=== PATIENT | female | born 1950 | race Caucasian/White ===

== ENCOUNTER 2020-02-01 16:03 | Emergency (ER) | payer MEDICARE, BC ==
[2020-02-01 17:09] LABS: BLOOD UREA NITROGEN,BUN 16 mg/dL (7.0-18.0); CARBON DIOXIDE,CO2 28.6 mmol/L (21.0-32.0); CHLORIDE,CL 96 mmol/L (98-107); GLUCOSE RANDOM 97 mg/dL (74-106); POTASSIUM,K 3.2 mmol/L (3.5-5.1); SODIUM,NA 135 mmol/L (136-145)
--- NOTE | 2020-02-01 17:36 | EDM.PDOC ---
ED HPI GENERAL MEDICAL PROBLEM - General Chief Complaint: Cardiovascular Problem Stated Complaint: HEART PALPATATIONS Time Seen by Provider: 02/01/20 16:18 Source of Information: Reports: Patient History Limitations: Reports: No Limitations - History of Present Illness INITIAL COMMENTS - FREE TEXT/NARRATIVE: 69F presents for palpaitations. Notes over last couple of weeks episodes lasting a few minutes of palpitations/heart racing associated with dizziness like room spinning sensation and nausea. Has vomited once from these episodes. Had roughly 4-5 yesterday and 2 episodes today. Denies CP or SOB. - Related Data Allergies Allergy/AdvReac Type Severity Reaction Status Date / Time amoxicillin Allergy Vomiting Verified 02/01/20 16:15 cephalexin Allergy Vomiting Verified 02/01/20 16:15 clavulanic acid Allergy Vomiting Verified 02/01/20 16:15 [From Augmentin] codeine Allergy Vomiting Verified 02/01/20 16:15 hydroxyzine [From Atarax] Allergy Numbness Verified 02/01/20 16:13 Home Meds: Home Meds Amitriptyline [Elavil] 50 mg PO BEDTIME 04/20/16 [History] Escitalopram Oxalate 1 tab PO QAM 04/20/16 [History] hydroCHLOROthiazide [Hydrochlorothiazide] 0.5 tab PO DAILY 04/20/16 [History] Past Medical History HEENT History: Reports: Cataract Other HEENT History: wears glasses Cardiovascular History: Reports: Hypertension Respiratory History: Reports: None Gastrointestinal History: Reports: Irritable Bowel Syndrome Other Gastrointestinal History: has gluten free diet Genitourinary History: Reports: None 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: Musculoskeletal History: Reports: Arthritis, Back Pain, Chronic, Fracture Other Musculoskeletal History: hx of fx toe Neurological History: Reports: Other (See Below) Other Neuro History: hx of motion sickness Psychiatric History: Reports: Depression Endocrine/Metabolic History: Reports: None Hematologic History: Reports: None Immunologic History: Reports: None Oncologic (Cancer) History: Reports: Basal Cell Carcinoma Other Oncologic History: currently has open area on ankle from recent basal cell cancer excision Dermatologic History: Reports: None - Infectious Disease History Infectious Disease History: Reports: Chicken Pox - Past Surgical History Head Surgeries/Procedures: Reports: None HEENT Surgical History: Reports: Adenoidectomy, Cataract Surgery, Tonsillectomy Cardiovascular Surgical History: Reports: None Respiratory Surgical History: Reports: None GI Surgical History: Reports: Colonoscopy, Other (See Below) Female Surgical History: Reports: Section Endocrine Surgical History: Reports: None Musculoskeletal Surgical History: Reports: Carpal Tunnel, Hip Replacement Social & Family History - Family History Family Medical History: Noncontributory - Tobacco Use Smoking Status *Q: Former Smoker Used Tobacco, but Quit: Yes Month/Year Tobacco Last Used: 1999 - Caffeine Use Caffeine Use: Reports: None - Recreational Drug Use Recreational Drug Use: No ED ROS GENERAL - Review of Systems Review Of Systems: Comprehensive ROS is negative, except as noted in HPI. ED EXAM, GENERAL - Physical Exam Exam: See Below Exam Limited By: Altered Mental Status General Appearance: Alert, WD/WN, No Apparent Distress Head: Atraumatic, Normocephalic Neck: Normal Inspection Respiratory/Chest: No Respiratory Distress, Lungs Clear, Normal Breath Sounds, No Accessory Muscle Use Cardiovascular: Normal Peripheral Pulses, Regular Rate, Rhythm, No Edema GI/Abdominal: Soft, Non-Tender Extremities: Normal Inspection Neurological: Alert Psychiatric: Normal Affect, Normal Mood Skin Exam: Warm, Dry, Intact EKG INTERPRETATION EKG Date: 02/01/20 Time: 17:36 Rhythm: NSR Rate (Beats/Min): 65 [place]: Normal P-Wave: Present QRS: Normal ST-T: Normal QT: Normal Comparison: NA - No Prior EKG Course - Vital Signs Last Recorded V/S: Last Vital Signs Temp 97.2 F 02/01/20 16:16 Pulse 77 02/01/20 16:16 Resp 18 02/01/20 16:16 BP 156/72 H 02/01/20 16:16 Pulse Ox 96 02/01/20 16:16 Orthostatic Blood Pressure [ 133/61 Standing] Orthostatic Blood Pressure [ 143/59 Sitting] Orthostatic Blood Pressure [ 136/59 Supine] - Orders/Labs/Meds Orders: Active Orders 24 hr Category Date Time Status Cardiac Monitoring [RC] . DIRECTED Care 02/01/20 16:45 Active EKG Documentation Completion [RC] STAT Care 02/01/20 16:45 Active Orthostatic Vital Signs [RC] ASDIRECTED Care 02/01/20 16:45 Active Pulse Oximetry [RC] ASDIRECTED Care 02/01/20 16:45 Active Chest 1V Frontal [CR] Stat Exams 02/01/20 16:45 Taken B-TYPE NATRIURETIC PEPTIDE,BNP [CHEM] Stat Lab 02/01/20 16:27 Received Labs: Laboratory Tests 02/01/20 02/01/20 Range/Units 16:27 16:27 WBC 8.43 (4.0-11.0) K/uL RBC 3.83 L (4.30-5.90) M/uL Hgb 12.6 (12.0-16.0) g/dL Hct 36.2 (36.0-46.0) % MCV 94.5 (80.0-98.0) fL MCH 32.9 H (27.0-32.0) pg MCHC 34.8 (31.0-37.0) g/dL RDW Std Deviation 48.6 (28.0-62.0) fl RDW Coeff of Demond 14 (11.0-15.0) % Plt Count 313 (150-400) K/uL MPV 8.90 (7.40-12.00) fL Neut % (Auto) 56.9 (48.0-80.0) % Lymph % (Auto) 30.7 (16.0-40.0) % [place] % (Auto) 10.0 (0.0-15.0) % Eos % (Auto) 2.0 (0.0-7.0) % Baso % (Auto) 0.4 (0.0-1.5) % Neut # (Auto) 4.8 (1.4-5.7) K/uL Lymph # (Auto) 2.6 H (0.6-2.4) K/uL [place] # (Auto) 0.8 (0.0-0.8) K/uL Eos # (Auto) 0.2 (0.0-0.7) K/uL Baso # (Auto) 0.0 (0.0-0.1) K/uL Nucleated RBC % 0.0 /100WBC Nucleated RBCs # 0 K/uL Sodium 135 L (136-145) mmol/L Potassium 3.2 L (3.5-5.1) mmol/L Chloride 96 L (98-107) mmol/L Carbon Dioxide 28.6 (21.0-32.0) mmol/L BUN 16 (7.0-18.0) mg/dL Creatinine 0.8 (0.6-1.0) mg/dL Est Cr Clr Drug Dosing 51.75 mL/min Estimated GFR (MDRD) > 60.0 ml/min Glucose 97 (74-106) mg/dL Calcium 9.2 (8.5-10.1) mg/dL Total Bilirubin 1.0 (0.2-1.0) mg/dL AST 26 (15-37) IU/L ALT 25 (14-63) IU/L Alkaline Phosphatase 77 (46-116) U/L Troponin I < 0.050 (0.000-0.056) ng/mL Total Protein 7.5 (6.4-8.2) g/dL Albumin 4.6 (3.4-5.0) g/dL Globulin 2.9 (2.6-4.0) g/dL Albumin/Globulin Ratio 1.6 (0.9-1.6) TSH 3rd Generation 1.90 (0.36-3.74) uIU/mL - Re-Assessments/Exams Free Text/Narrative Re-Assessment/Exam: 02/01/20 17:33 Labs unermarkable, patient remains asymptomatic throughout stay. She has f/u with her doctor tomorrow morning. WIll d/c with strict return precautions. Patient understands and agrees [facility] plan. Departure - Departure Time of Disposition: 17:33 Disposition: Home, Self-Care 01 Condition: Good Clinical Impression: Palpitations Instructions: Palpitations, [id number] Referrals: Sherman Hsu MD [Primary Care Provider] - Additional Instructions: The following information is given to patients seen in the emergency department who are being discharged to home. This information is to outline your options for follow-up care. We provide all patients seen in our emergency department with a follow-up referral. The need for follow-up, as well as the timing and circumstances, are variable depending upon the specifics of your emergency department visit. If you don't have a primary care physician on staff, we will provide you with a referral. We always advise you to contact your personal physician following an emergency department visit to inform them of the circumstance of the visit and for follow-up with them and/or the need for any referrals to a consulting specialist. The emergency department will also refer you to a specialist when appropriate. This referral assures that you have the opportunity for follow-up care with a specialist. All of these measure are taken in an effort to provide you with optimal care, which includes your follow-up. Under all circumstances we always encourage you to contact your private physician who remains a resource for coordinating your care. When calling for follow-up care, please make the office aware that this follow-up is from your recent emergency room visit. If for any reason you are refused follow-up, please contact the [facility] Emergency Department at and asked to speak to the emergency department charge nurse. Sepsis Event Note (ED) - Evaluation Sepsis Screening Result: No Definite Risk - Focused Exam Vital Signs: Vital Signs Temp Pulse Resp BP Pulse Ox 02/01/20 16:16 97.2 F 77 18 156/72 H 96 - My Orders Last 24 Hours: My Active Orders 02/01/20 16:27 B-TYPE NATRIURETIC PEPTIDE,BNP [CHEM] Stat 02/01/20 16:45 Cardiac Monitoring [RC] . DIRECTED EKG Documentation Completion [RC] STAT Orthostatic Vital Signs [RC] ASDIRECTED Pulse Oximetry [RC] ASDIRECTED Chest 1V Frontal [CR] Stat - Assessment/Plan Last 24 Hours: My Active Orders 02/01/20 16:27 B-TYPE NATRIURETIC PEPTIDE,BNP [CHEM] Stat 02/01/20 16:45 Cardiac Monitoring [RC] . DIRECTED EKG Documentation Completion [RC] STAT Orthostatic Vital Signs [RC] ASDIRECTED Pulse Oximetry [RC] ASDIRECTED Chest 1V Frontal [CR] Stat
[2020-02-01 17:41] VITALS: BP 125/49; PULSE 65
--- NOTE | 2020-02-01 17:47 | CR ---
Chest: Portable view of the chest was obtained. Comparison: No prior chest imaging. Heart size is within normal limits for AP technique. Tortuous thoracic aorta is seen. Linear densities are noted within the right midlung and within the left lower lung most likely due to areas of scarring and possible atelectasis. Lungs otherwise are clear. Mild scoliosis is noted within the spine. Impression: 1. Findings as noted above. 2. Nothing acute is suspected. Diagnostic code #2 This report was dictated in MDT
== END 2020-02-01 17:55 | disposition home or self-care (01) ==
LOC: MW.ED 16:03
DX: R00.2 Palpitations (principal); F32.9 Major depressive disorder, single episode, unspecified; I10 Essential (primary) hypertension; Z87.891 Personal history of nicotine dependence; Z88.1 Allergy status to other antibiotic agents; Z88.5 Allergy status to narcotic agent; Z88.8 Allergy status to other drugs, medicaments and biological substances; Z79.899 Other long term (current) drug therapy
CPT/HCPCS: 71045; 71045-26; 80053; 83880; 84443; 84484; 85025; 93005; 93010; 99283; 99285-25

== ENCOUNTER 2020-03-04 11:40 | Emergency (ER) | payer MEDICARE, BC ==
--- NOTE | 2020-03-04 11:54 | EDM.PDOC ---
ED HPI GENERAL MEDICAL PROBLEM - General Chief Complaint: Neuro Symptoms/Deficits Stated Complaint: HAVING ISSUES MOVING LT HAND Time Seen by Provider: 03/04/20 11:50 Source of Information: Reports: Patient History Limitations: Reports: No Limitations - History of Present Illness INITIAL COMMENTS - FREE TEXT/NARRATIVE: History of present illness: [Patient is 69-year-old female who presents with dexterity problems related to her left hand. She states after she woke up this morning she felt like she had a difficult time touching her thumb to each of her fingers individually on her left hand. She denies any other symptoms or complaints. She has a history of previous carpal tunnel surgery and bilateral hands, this was several years ago. Denies any chest pain or shortness of breath. Denies blurry vision, headache, neck pain, or any trauma to the arm or neck. Denies history of radiculopathy. Denies history of previous strokes. Denies trouble walking or talking. When asked if she may have slept on it wrong or could simply be related to her position while sleeping, she states possibly. Has not taken any medications to relieve her symptoms prior to arrival. Of note, while I was in there examining her and talking with her symptoms resolved and she was able to perform the functions with her left hand as well as her right.] Review of systems: As per history of present illness and below otherwise all systems reviewed and negative. Past medical history: As per history of present illness and as reviewed below otherwise noncontributory. Surgical history: As per history of present illness and as reviewed below otherwise noncontributory. Social history: No reported history of drug or alcohol abuse. Family history: As per history of present illness and as reviewed below otherwise noncontributory. Physical exam: General: Awake, alert, no acute distress, A&O X3. HEENT: Atraumatic, normocephalic, pupils reactive, negative for conjunctival pallor or scleral icterus, mucous membranes moist, throat clear, neck supple, nontender, trachea midline. Lungs: Clear to auscultation, breath sounds equal bilaterally, chest nontender. Heart: RRR, normal S1S2, no JVD. Abdomen: Soft, nondistended, nontender. Negative for masses or hepatosplenomegaly. Negative for costovertebral tenderness. Pelvis: Stable nontender. Genitourinary: Deferred. Rectal: Deferred. Extremities: Atraumatic, no edema, Neurovascular unremarkable. Neuro: Motor and sensory grossly intact throughout. Exam nonfocal. 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 NIH 0 Diagnostics: [] Therapeutics: [] Impression: [] Plan: [] Definitive disposition and diagnosis as appropriate pending reevaluation and review of above. - Related Data Allergies Allergy/AdvReac Type Severity Reaction Status Date / Time amoxicillin Allergy Vomiting Verified 03/04/20 11:49 cephalexin Allergy Vomiting Verified 03/04/20 11:49 clavulanic acid Allergy Vomiting Verified 03/04/20 11:49 [From Augmentin] codeine Allergy Vomiting Verified 03/04/20 11:49 hydroxyzine [From Atarax] Allergy Numbness Verified 03/04/20 11:49 Home Meds: Home Meds Amitriptyline [Elavil] 50 mg PO BEDTIME 04/20/16 [History] Escitalopram Oxalate 1 tab PO QAM 04/20/16 [History] hydroCHLOROthiazide [Hydrochlorothiazide] 0.5 tab PO DAILY 04/20/16 [History] Past Medical History HEENT History: Reports: Cataract Other HEENT History: wears glasses Cardiovascular History: Reports: Hypertension Respiratory History: Reports: None Gastrointestinal History: Reports: Irritable Bowel Syndrome Other Gastrointestinal History: has gluten free diet Genitourinary History: Reports: None 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: Musculoskeletal History: Reports: Arthritis, Back Pain, Chronic, Fracture Other Musculoskeletal History: hx of fx toe Neurological History: Reports: Other (See Below) Other Neuro History: hx of motion sickness Psychiatric History: Reports: Depression Endocrine/Metabolic History: Reports: None Hematologic History: Reports: None Immunologic History: Reports: None Oncologic (Cancer) History: Reports: Basal Cell Carcinoma Other Oncologic History: currently has open area on ankle from recent basal cell cancer excision Dermatologic History: Reports: None - Infectious Disease History Infectious Disease History: Reports: Chicken Pox - Past Surgical History Head Surgeries/Procedures: Reports: None HEENT Surgical History: Reports: Adenoidectomy, Cataract Surgery, Tonsillectomy Cardiovascular Surgical History: Reports: None Respiratory Surgical History: Reports: None GI Surgical History: Reports: Colonoscopy, Other (See Below) Female Surgical History: Reports: Section Endocrine Surgical History: Reports: None Musculoskeletal Surgical History: Reports: Carpal Tunnel, Hip Replacement Social & Family History - Family History Family Medical History: Noncontributory - Caffeine Use Caffeine Use: Reports: None ED ROS GENERAL - Review of Systems Review Of Systems: Comprehensive ROS is negative, except as noted in HPI. ED EXAM, NEURO - Physical Exam Exam: See Below (see h and p) EKG INTERPRETATION EKG Date: 03/04/20 Time: 11:53 Rhythm: NSR Rate (Beats/Min): 59 [place]: Normal P-Wave: Present QRS: Normal ST-T: Normal QT: Normal Course - Vital Signs Text/Narrative:: Patient symptoms have improved. She has an NIH of 0. No indication for CT scan of the brain at this time. Intact sensation and strength of the left hand. I gave her neurology follow-up, symptoms are more likely related to a peripheral nerve palsy, a mild 1 at that, and patient is comfortable this plan. Return precautions were provided for new or worsening symptoms including flaccid weakness of the left arm, difficulty walking or talking, severe headache, etc. Patient is in this plan and is agreeable with it. She otherwise has stable vital signs and is well-appearing at the time of discharge. Last Recorded V/S: Last Vital Signs Temp 36.4 C 03/04/20 11:49 Pulse 68 03/04/20 11:49 Resp 16 03/04/20 11:49 BP 138/70 03/04/20 11:49 Pulse Ox 98 03/04/20 11:49 - Orders/Labs/Meds Orders: Active Orders 24 hr Category Date Time Status EKG Documentation Completion [RC] STAT Care 03/04/20 11:50 Active Labs: Laboratory Tests 03/04/20 03/04/20 Range/Units 12:00 12:00 WBC 5.46 (4.0-11.0) K/uL RBC 3.84 L (4.30-5.90) M/uL Hgb 12.5 (12.0-16.0) g/dL Hct 36.7 (36.0-46.0) % MCV 95.6 (80.0-98.0) fL MCH 32.6 H (27.0-32.0) pg MCHC 34.1 (31.0-37.0) g/dL RDW Std Deviation 48.2 (28.0-62.0) fl RDW Coeff of Demond 14 (11.0-15.0) % Plt Count 308 (150-400) K/uL MPV 8.90 (7.40-12.00) fL Neut % (Auto) 44.1 L (48.0-80.0) % Lymph % (Auto) 41.4 H (16.0-40.0) % [place] % (Auto) 10.3 (0.0-15.0) % Eos % (Auto) 3.7 (0.0-7.0) % Baso % (Auto) 0.5 (0.0-1.5) % Neut # (Auto) 2.4 (1.4-5.7) K/uL Lymph # (Auto) 2.3 (0.6-2.4) K/uL [place] # (Auto) 0.6 (0.0-0.8) K/uL Eos # (Auto) 0.2 (0.0-0.7) K/uL Baso # (Auto) 0.0 (0.0-0.1) K/uL Nucleated RBC % 0.0 /100WBC Nucleated RBCs # 0 K/uL Sodium 136 (136-145) mmol/L Potassium 3.4 L (3.5-5.1) mmol/L Chloride 99 (98-107) mmol/L Carbon Dioxide 28.4 (21.0-32.0) mmol/L BUN 13 (7.0-18.0) mg/dL Creatinine 0.8 (0.6-1.0) mg/dL Est Cr Clr Drug Dosing 50.56 mL/min Estimated GFR (MDRD) > 60.0 ml/min Glucose 99 (74-106) mg/dL Calcium 9.4 (8.5-10.1) mg/dL Total Bilirubin 0.8 (0.2-1.0) mg/dL AST 24 (15-37) IU/L ALT 27 (14-63) IU/L Alkaline Phosphatase 71 (46-116) U/L Troponin I < 0.050 (0.000-0.056) ng/mL Total Protein 6.9 (6.4-8.2) g/dL Albumin 4.2 (3.4-5.0) g/dL Globulin 2.7 (2.6-4.0) g/dL Albumin/Globulin Ratio 1.6 (0.9-1.6) Departure - Departure Time of Disposition: 13:18 Disposition: Home, Self-Care 01 Condition: Good Clinical Impression: Peripheral nerve dysfunction - Discharge Information Instructions: Peripheral Neuropathy Referrals: Sherman Hsu MD [Primary Care Provider] - Forms: ED Department Discharge Additional Instructions: [facility] - Neurology [address], [address] [place] [address] Follow-up with neurologist by calling number provided to schedule appointment. Take all medications as previously prescribed. Return to the ER with any new or worsening symptoms. The following information is given to patients seen in the emergency department who are being discharged to home. This information is to outline your options for follow-up care. We provide all patients seen in our emergency department with a follow-up referral. The need for follow-up, as well as the timing and circumstances, are variable depending upon the specifics of your emergency department visit. If you don't have a primary care physician on staff, we will provide you with a referral. We always advise you to contact your personal physician following an e mergency department visit to inform them of the circumstance of the visit and for follow-up with them and/or the need for any referrals to a consulting specialist. The emergency department will also refer you to a specialist when appropriate. This referral assures that you have the opportunity for follow-up care with a specialist. All of these measure are taken in an effort to provide you with op timal care, which includes your follow-up. Under all circumstances we always encourage you to contact your private physician who remains a resource for coordinating your care. When calling for follow-up care, please make the office aware that this follow-up is from your recent emergency room visit. If for any reason you are refused follow-up, please contact the [facility] Emergency Department at and asked to speak to the emergency department charge nurse. Sepsis Event Note (ED) - Focused Exam Vital Signs: Vital Signs Temp Pulse Resp BP Pulse Ox 03/04/20 11:49 36.4 C 68 16 138/70 98 - My Orders Last 24 Hours: My Active Orders 03/04/20 11:50 EKG Documentation Completion [RC] STAT - Assessment/Plan Last 24 Hours: My Active Orders 03/04/20 11:50 EKG Documentation Completion [RC] STAT
[2020-03-04 13:01] LABS: BLOOD UREA NITROGEN,BUN 13 mg/dL (7.0-18.0); CARBON DIOXIDE,CO2 28.4 mmol/L (21.0-32.0); CHLORIDE,CL 99 mmol/L (98-107); GLUCOSE RANDOM 99 mg/dL (74-106); POTASSIUM,K 3.4 mmol/L (3.5-5.1); SODIUM,NA 136 mmol/L (136-145)
[2020-03-04 17:10] VITALS: BP 118/50; PULSE 60
== END 2020-03-04 13:26 | disposition home or self-care (01) ==
LOC: MW.ED 11:40
DX: G64 Other disorders of peripheral nervous system (principal); I10 Essential (primary) hypertension; F32.9 Major depressive disorder, single episode, unspecified; Z79.899 Other long term (current) drug therapy; Z88.1 Allergy status to other antibiotic agents; Z88.5 Allergy status to narcotic agent; Z88.8 Allergy status to other drugs, medicaments and biological substances
CPT/HCPCS: 36415; 80053; 84484; 85025; 93005; 99282; 99284-25

== ENCOUNTER 2021-01-27 10:20 | Emergency (ER) | payer MEDICARE, BC ==
--- NOTE | 2021-01-27 10:25 | EDM.PDOC ---
ED HPI GENERAL MEDICAL PROBLEM - General Stated Complaint: passed out hit head Time Seen by Provider: 01/27/21 10:22 Source of Information: Reports: Patient History Limitations: Reports: No Limitations - History of Present Illness INITIAL COMMENTS - FREE TEXT/NARRATIVE: HISTORY AND PHYSICAL: History of present illness: Patient is a 70-year-old female who presents to the emergency room after a syncopal event last evening. She states she was sitting at a high top table when "the next thing I know I am being woken up on the floor by my ". She states she has been seeing cardiology for a year and a half for episodes where she gets chills and palpitations "all over". She recently was released from cardiology as "he did every test he could" and everything was normal. While she was sitting at the table she did have the chills and palpitation episode, although she has never passed out in the past. She did hit the left upper cheekbone, bruising is noted. She waited till today for seeking medical attention as she was hoping to get into her primary care provider. She does have a mild headache 4/10, has not taken any medications at this time. She does have acute on chronic neck and bilateral shoulder pain which she typically goes to a chiropractor for. No other bodily injury or concerns. Patient denies any fever, chills, change in vision, chest pain, back pain, shortness of breath or cough. Denies any abdominal pain, nausea, vomiting, diarrhea, constipation or dysuria. Has not noted any blood in urine or stool. No urinary or fecal incontinence. Denies any numbness, tingling, saddle paresthesias or weakness. Patient has been eating and drinking appropriately. Review of systems: As per history of present illness and below otherwise all systems reviewed and negative. Past medical history: As per history of present illness and as reviewed below otherwise noncontributory. Surgical history: As per history of present illness and as reviewed below otherwise noncontr ibutory. Social history: See social history for further information Family history: As per history of present illness and as reviewed below otherwise noncontributory. Physical exam: General: Well developed and well nourished. Alert and orientated x 3. Nontoxic in appearance and in no acute distress. Vital signs are stable and have been reviewed by me. Nursing notes were reviewed. HEENT: Small amount of bruising to left upper cheekbone with tenderness to touch. Normocephalic, pupils equal and reactive bilaterally, negative for conjunctival pallor or scleral icterus, ocular movement intact without pain. Teeth intact, mucous membranes moist, TMs normal bilaterally, throat clear, neck supple, nontender, trachea midline. No drooling or trismus noted. No meningeal signs. No hot potato voice noted. Lungs: Clear to auscultation bilaterally. No wheezes, rales, or rhonchi. Chest nontender. Normal work of breathing, no accessory muscles used. Heart: S1S2, regular rate and rhythm without overt murmur, gallops, or rubs. No JVD. No peripheral edema Abdomen: Soft, nondistended, nontender. Normoactive bowel sounds. Negative for costovertebral tenderness. Pelvis is stable and nontender. C-spine/Back: No pinpoint vertebral tenderness upon palpation. No crepitus, step-offs or obvious deformities. Paraspinous muscular tenderness to bilateral cervical region/trapezius region. Patient is ambulatory into the emergency room without difficulty or deficit. Able to rock back on heels and walk on toes. Denies any urinary or fecal incontinence. Denies any numbness, tingling or saddle paresthesia. No concerns of serious infection, fracture or cord compression, or cauda equina syndrome. Deep tendon reflexes brisk bilaterally. Skin: Quarter sized bruise to left upper cheek bone. Remaining skin is intact, warm, dry. No lesions or rashes noted. Hematologic: No petechiae or purpra. Mucosa appropriate color and normal nail bed color and refill. Extremities: Moves all extremities per self without difficulty or deficits, negative for cords or calf pain. Strong distal pulses bilaterally. +CMS. Neurovascular unremarkable. Neuro: Awake, alert, oriented. Cranial nerves II through XII unremarkable. Cerebellum unremarkable. Motor and sensory unremarkable throughout. Exam nonfocal. Psychiatric: Mood and affect are appropriate. Normal thought process. Answering questions appropriately. Notes: *This patient was seen and evaluated during the 2019 SARS-CoV-2 novel coronavirus pandemic period. Community viral transmission is ongoing at time of this encounter and the emergency department is operating under pandemic response procedures. 07/25/2020: CT chest angiogram/cardiac calcium scoring_no significant coronary artery stenosis. Mild to moderate coronary artery disease. 04/26/20: Myocardial perfusion imaging is normal, overall left ventricular systolic function was normal without regional wall motion abnormalities. Patient is a 70-year-old female who presents to the emergency room with her after a syncopal event that occurred yesterday evening. She did fall approximately 3 feet to the ground off of her chair to the ground, striking the left side of her face. She does have mild tenderness to the left upper cheekbone and has a headache of 4/10. Denies any chest pain/SOB. Physical exam is otherwise unremarkable. She does have some acute on chronic cervical neck pain, will get CT scans of the head/maxillofacial and cervical spine. Neurologically intact. We will get a cardiac work-up as well. No concern for PE at this time. Vital signs are stable. She declines wanting anything for her headache at this time. Wells' Criteria for Pulmonary Embolism Positive indicators: None Points: Low risk group HEART Score for Major Cardiac Events: History: 0 EK Age: 1 Risk factors: 0 Initial troponin: 0 Score: 2 points (Low Score) Chest x-ray shows a small patchy opacity in the left lower lung may represent atelectasis or infiltrate. She has not had any cardiac/resp symptoms nor fever etc... Head CT shows no sign of acute injury. Right frontal lobe encephalomalacia present. NO facial bone fractures or acute injury noted. CT C- spine shows no sign of acute injury. Multilevel degenerative spondylosis. Patient's potassium is low at 3.1. Troponin and TSH are WNL. I have talked with the patient about today's findings, in addition to providing specific details for plan of care. I have offered/discussed observation admission with patient to monitor. She declines stating she would rather have close follow up with her PCP. She and her are reliable and aware of the risks of being discharged without specific cause of her syncope. She accepts these risks. Reassessment at the time of disposition demonstrates that the patient is in no acute distress. The patient is stable for discharge, counseling was provided and we discussed in great detail signs and symptoms that would prompt them to return to the Emergency Department. Medication, follow up and supportive care measures were reviewed and discussed. Voices understanding and is agreeable to plan of care. Denies any further questions or concerns at this time. Diagnostics: CBC, CMP, UA, troponin, TSH, EKG, head/maxillofacial/cervical spine Therapeutics: NS at 100mls/hr, K-Dur Prescription: K-Dur Impression: Hypokalemia Syncope Plan: 1. You were evaluated today on an emergent basis. Your CT scans of your face/head and neck are within normal limits (no fractures, bleeding, mass etc.). Blood work shows your potassium is low, needing replacement. Please take the Potassium as directed. Your EKG and cardiac enzymes are within normal limits. 2. You can alternate Tylenol and ibuprofen as needed for pain and fever management. 3. We encourage you to follow up with your primary care provider in the next few days for re-evaluation and further care/management. 4. If your symptoms should worsen, new symptoms develop or any of the signs and symptoms we discussed should arise please return to the emergency room or call 911 (if needed). Definitive disposition and diagnosis as appropriate pending reevaluation and review of above. Head Pain Score (Numeric/FACES): 4 - Related Data Allergies Allergy/AdvReac Type Severity Reaction Status Date / Time amoxicillin Allergy Vomiting Verified 01/27/21 10:39 cephalexin Allergy Vomiting Verified 01/27/21 10:39 clavulanic acid Allergy Vomiting Verified 01/27/21 10:39 [From Augmentin] codeine Allergy Vomiting Verified 01/27/21 10:39 hydroxyzine [From Atarax] Allergy Numbness Verified 01/27/21 10:39 Home Meds: Home Meds Escitalopram Oxalate 1 tab PO QAM 04/20/16 [History] hydroCHLOROthiazide [Hydrochlorothiazide] 0.5 tab PO DAILY 04/20/16 [History] Potassium Chloride [Klor-Con M20] 20 meq PO BID 4 Days #8 tab.er 01/27/21 [Rx] Past Medical History HEENT History: Reports: Cataract Other HEENT History: wears glasses Cardiovascular History: Reports: Hypertension Other Cardiovascular History: Has zio-patch in place during visit on 03/04. 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: Musculoskeletal History: Reports: Arthritis, Back Pain, Chronic, Fracture Other Musculoskeletal History: hx of fx toe Neurological History: Reports: Other (See Below) Other Neuro History: hx of motion sickness Psychiatric History: Reports: Depression Endocrine/Metabolic History: Reports: None Hematologic History: Reports: None Immunologic History: Reports: None Oncologic (Cancer) History: Reports: Basal Cell Carcinoma Other Oncologic History: currently has open area on ankle from recent basal cell cancer excision Dermatologic History: Reports: None - Infectious Disease History Infectious Disease History: Reports: Chicken Pox - Past Surgical History Head Surgeries/Procedures: Reports: None HEENT Surgical History: Reports: Adenoidectomy, Cataract Surgery, Tonsillectomy Cardiovascular Surgical History: Reports: None Respiratory Surgical History: Reports: None GI Surgical History: Reports: Colonoscopy, Other (See Below) Female Surgical History: Reports: Section Endocrine Surgical History: Reports: None Musculoskeletal Surgical History: Reports: Carpal Tunnel, Hip Replacement Social & Family History - Family History Family Medical History: No Pertinent Family History - Caffeine Use Caffeine Use: Reports: None ED ROS GENERAL - Review of Systems Review Of Systems: Comprehensive ROS is negative, except as noted in HPI. ED EXAM, HEAD INJURY - Physical Exam Exam: See Below (See dictation) Course - Vital Signs Last Recorded V/S: Last Vital Signs Temp 96.6 F L 01/27/21 10:39 Pulse 71 01/27/21 10:39 Resp 16 01/27/21 10:39 BP 150/67 H 01/27/21 10:39 Pulse Ox 95 01/27/21 10:39 Orthostatic Blood Pressure [ 128/61 Standing] Orthostatic Blood Pressure [ 143/69 Sitting] Orthostatic Blood Pressure [ 148/54 Supine] - Orders/Labs/Meds Orders: Active Orders 24 hr Category Date Time Status EKG Documentation Completion [RC] STAT Care 01/27/21 10:26 Active Orthostatic Vital Signs [RC] ASDIRECTED Care 01/27/21 10:42 Active Max Facial Sinus wo Cont [CT] Stat Exams 01/27/21 10:42 Taken UA RFX YOVANY AND CULT IF INDIC [URIN] Stat Lab 01/27/21 10:42 Ordered Sodium Chloride 0.9% [Normal Saline] 1,000 ml Med 01/27/21 10:26 Active IV STAT Medication Orders Sodium Chloride (Normal Saline) 1,000 mls @ 100 mls/hr IV STAT ONE Stop: 01/27/21 20:25 Last Admin: 01/27/21 10:58 Dose: 100 mls/hr Documented by: ASHUTOSH Labs: Laboratory Tests 01/27/21 01/27/21 01/27/21 Range/Units 10:35 10:35 10:35 WBC 6.46 (4.0-11.0) K/uL RBC 4.17 L (4.30-5.90) M/uL Hgb 12.9 (12.0-16.0) g/dL Hct 37.4 (36.0-46.0) % MCV 89.7 (80.0-98.0) fL MCH 30.9 (27.0-32.0) pg MCHC 34.5 (31.0-37.0) g/dL RDW Std Deviation 45.3 (28.0-62.0) fl RDW Coeff of Demond 14 (11.0-15.0) % Plt Count 336 (150-400) K/uL MPV 8.70 (7.40-12.00) fL Neut % (Auto) 51.7 (48.0-80.0) % Lymph % (Auto) 33.1 (16.0-40.0) % Hernando % (Auto) 10.4 (0.0-15.0) % Eos % (Auto) 4.0 (0.0-7.0) % Baso % (Auto) 0.8 (0.0-1.5) % Neut # (Auto) 3.3 (1.4-5.7) K/uL Lymph # (Auto) 2.1 (0.6-2.4) K/uL Hernando # (Auto) 0.7 (0.0-0.8) K/uL Eos # (Auto) 0.3 (0.0-0.7) K/uL Baso # (Auto) 0.1 (0.0-0.1) K/uL Nucleated RBC % 0.0 /100WBC Nucleated RBCs # 0 K/uL Sodium 135 L (136-145) mmol/L Potassium 3.1 L (3.5-5.1) mmol/L Chloride 96 L (98-107) mmol/L Carbon Dioxide 30.2 (21.0-32.0) mmol/L BUN 16 (7.0-18.0) mg/dL Creatinine 0.8 (0.6-1.0) mg/dL Est Cr Clr Drug Dosing 48.67 mL/min Estimated GFR (MDRD) > 60.0 ml/min Glucose 92 (74-106) mg/dL Calcium 9.0 (8.5-10.1) mg/dL Total Bilirubin 1.0 (0.2-1.0) mg/dL AST 27 (15-37) IU/L ALT 28 (14-63) IU/L Alkaline Phosphatase 72 (46-116) U/L Troponin I < 0.050 (0.000-0.056) ng/mL Total Protein 7.3 (6.4-8.2) g/dL Albumin 4.2 (3.4-5.0) g/dL Globulin 3.1 (2.6-4.0) g/dL Albumin/Globulin Ratio 1.4 (0.9-1.6) TSH, Ultra Sensitive 1.36 (0.36-3.74) uIU/mL Meds: Medications Generic Name Dose Route Start Last Admin Trade Name Freq PRN Reason Stop Dose Admin Sodium Chloride 1,000 mls @ 100 mls/hr 01/27/21 10:26 01/27/21 10:58 Normal Saline IV 01/27/21 20:25 100 mls/hr STAT ONE Administration Discontinued Medications Generic Name Dose Route Start Last Admin Trade Name Freq PRN Reason Stop Dose Admin Potassium Chloride 40 meq 01/27/21 11:41 01/27/21 12:07 Potassium Chloride 20 Meq Tab.Er PO 01/27/21 11:42 40 meq ONETIME ONE Administration Departure - Departure Time of Disposition: 12:56 Disposition: Home, Self-Care 01 Clinical Impression: Syncope, Hypokalemia - Discharge Information Prescriptions: Potassium Chloride [Klor-Con M20] 20 meq PO BID 4 Days #8 tab.er Instructions: Syncope, [id number] Referrals: Juan Pablo Velázquez MD [Primary Care Provider] - Additional Instructions: The following information is given to patients seen in the emergency department who are being discharged to home. This information is to outline your options for follow-up care. We provide all patients seen in our emergency department wi th a follow-up referral. The need for follow-up, as well as the timing and circumstances, are variable depending upon the specifics of your emergency department visit. If you don't have a primary care physician on staff, we will provide you with a referral. We always advise you to contact your personal physician following an emergency department visit to inform them of the circumstance of the visit and for follow-up with them and/or the need for any referrals to a consulting specialist. The emergency department will also refer you to a specialist when appropriate. This referral assures that you have the opportunity for follow-up care with a specialist. All of these measure are taken in an effort to provide you with optimal care, which includes your follow-up. Under all circumstances we always encourage you to contact your private physician who remains a resource for coordinating your care. When calling for follow-up care, please make the office aware that this follow-up is from your recent emergency room visit. If for any reason you are refused follow-up, please contact the [facility] Emergency Department at and asked to speak to the emergency department charge nurse. [facility] [address] [place] [id number] [place] [address] Thank you for choosing the [facility] emergency department in [facility] for your medical needs today. It was a pleasure caring for you. Today you were seen in the emergency department for syncope and head injury. 1. You were evaluated today on an emergent basis. Your CT scans of your face/head and neck are within normal limits (no fractures, bleeding, mass etc.). Blood work shows your potassium is low, needing replacement. Please take the Potassium as directed. Your EKG and cardiac enzymes are within normal limits. 2. You can alternate Tylenol and ibuprofen as needed for pain and fever management. 3. We encourage you to follow up with your primary care provider in the next few days for re-evaluation and further care/management. 4. If your symptoms should worsen, new symptoms develop or any of the signs and symptoms we discussed should arise please return to the emergency room or call 911 (if needed). Sepsis Event Note (ED) - Focused Exam Vital Signs: Vital Signs Temp Pulse Resp BP Pulse Ox 01/27/21 10:39 96.6 F L 71 16 150/67 H 95 - My Orders Last 24 Hours: My Active Orders 01/27/21 10:26 EKG Documentation Completion [RC] STAT Sodium Chloride 0.9% [Normal Saline] 1,000 ml IV STAT 01/27/21 10:42 Orthostatic Vital Signs [RC] ASDIRECTED Max Facial Sinus wo Cont [CT] Stat UA RFX YOVANY AND CULT IF INDIC [URIN] Stat - Assessment/Plan Last 24 Hours: My Active Orders 01/27/21 10:26 EKG Documentation Completion [RC] STAT Sodium Chloride 0.9% [Normal Saline] 1,000 ml IV STAT 01/27/21 10:42 Orthostatic Vital Signs [RC] ASDIRECTED Max Facial Sinus wo Cont [CT] Stat UA RFX YOVANY AND CULT IF INDIC [URIN] Stat
[2021-01-27] MEDS ORDERED: Sodium Chloride 0.9% 1,000 ML IV ONE (10:26)
[2021-01-27 11:31] LABS: BLOOD UREA NITROGEN,BUN 16 mg/dL (7.0-18.0); CARBON DIOXIDE,CO2 30.2 mmol/L (21.0-32.0); CHLORIDE,CL 96 mmol/L (98-107); GLUCOSE RANDOM 92 mg/dL (74-106); POTASSIUM,K 3.1 mmol/L (3.5-5.1); SODIUM,NA 135 mmol/L (136-145)
[2021-01-27] MEDS ORDERED: Potassium Chloride 20 MEQ Tab.ER PO ONE (11:41)
--- NOTE | 2021-01-27 12:05 | CR ---
INDICATION: Syncope. TECHNIQUE: Chest 1 view. COMPARISON: None. FINDINGS: Small patchy opacity in the left lower lung adjacent to the left heart border may represent atelectasis or infiltrate. Linear atelectasis or scarring in the right midlung. No pleural effusion or pneumothorax. Normal heart size and pulmonary vascularity. Tortuous aorta. Mild left convex thoracic curve. IMPRESSION: Small patchy opacity in the left lower lung may represent atelectasis or infiltrate. Dictated by Yamileth Rizzo MD @ 01/27/2021 12:03:[address] Yamileth Rizzo @ Jan 27 2021 12:03PM
--- NOTE | 2021-01-27 12:47 | CT ---
INDICATION: Syncope with head injury. TECHNIQUE: Head CT without contrast. COMPARISON: None FINDINGS: CSF spaces: Within normal limits for age. Brain parenchyma and extra-axial spaces: There are nonspecific low attenuation white matter changes consistent with chronic microvascular disease. Regional area of encephalomalacia is in the right frontal region. No sign of mass, hemorrhage, or midline shift. Skull base and calvarium: The visualized paranasal sinuses and mastoid air cells demonstrate no acute or significant findings. The visualized orbits are grossly unremarkable. No skull fractures. IMPRESSION: No sign of acute injury. Right frontal lobe encephalomalacia present. Please note that all CT scans at this facility use dose modulation, iterative reconstruction, and/or weight-based dosing when appropriate to reduce radiation dose to as low as reasonably achievable. Dictated by Chandler Limon MD @ 01/27/2021 12:45:[address] Chandler Limon @ Jan 27 2021 12:45PM
--- NOTE | 2021-01-27 12:49 | CT ---
INDICATION: Syncope, fall. TECHNIQUE: CT cervical spine without contrast. COMPARISON: None FINDINGS: Vertebrae: Alignment is normal. There are no fractures or suspicious bony lesions. Discs and facet joints: There are degenerative disc changes most severe at C5-6 and C6-7. There are multilevel degenerative changes in the facets. Extraspinal findings: Paraspinous soft tissues are unremarkable. IMPRESSION: 1. No sign of acute injury. 2. Multilevel degenerative spondylosis. Please note that all CT scans at this facility use dose modulation, iterative reconstruction, and/or weight-based dosing when appropriate to reduce radiation dose to as low as reasonably achievable. Dictated by Chandler Limon MD @ 01/27/2021 12:48:[address] Chandler Limon @ Jan 27 2021 12:48PM
--- NOTE | 2021-01-27 12:55 | CT ---
INDICATION: Facial injury TECHNIQUE: CT maxillofacial without contrast. COMPARISON: None FINDINGS: Facial bones: No fractures or bone lesions. Specifically the nasal bones, temporomandibular joints, maxilla and mandible appear intact. Orbits and globes: Unremarkable. Globes are intact. No sign of intraorbital hemorrhage or emphysema. Sinuses: No acute or significant findings. Soft tissues: Unremarkable. IMPRESSION: No sign of acute injury. Please note that all CT scans at this facility use dose modulation, iterative reconstruction, and/or weight-based dosing when appropriate to reduce radiation dose to as low as reasonably achievable. Dictated by Chandler Limon MD @ 01/27/2021 12:53:[address] Chandler Limon @ Jan 27 2021 12:53PM
[2021-01-27 13:11] VITALS: BP 150/76; PULSE 64
--- NOTE | 2021-01-27 16:14 | PCM.EKG ---
#1 Interpretation EKG Interpretation Comments: EKG date January 27, 2021 EKG: As interpreted by ER physician: Elina: Nonspecific ST-T wave abnormalities Normal axis No evidence of ST elevation DE Normal sinus rhythm heart rate of 60
== END 2021-01-27 13:11 | disposition home or self-care (01) ==
LOC: MW.ED 10:20
DX: R55 Syncope and collapse (principal); E87.6 Hypokalemia; I10 Essential (primary) hypertension; Z88.0 Allergy status to penicillin; Z88.1 Allergy status to other antibiotic agents; Z88.5 Allergy status to narcotic agent; Z79.899 Other long term (current) drug therapy
CPT/HCPCS: 36415; 70450; 70486; 71045; 72125; 80053; 84443; 84484; 85025; 93005; 99284; A9270; J7030

== ENCOUNTER 2022-12-18 15:14 | Emergency (ER) | payer MEDICARE, BC ==
[2022-12-18 15:54] VITALS: BP 126/69; PULSE 64
[2022-12-18] MEDS ORDERED: Cephalexin 500 MG Cap PO ONE (15:54)
== END 2022-12-18 16:30 | disposition home or self-care (01) ==
LOC: MW.ED 15:14
DX: I88.8 Other nonspecific lymphadenitis (principal); I10 Essential (primary) hypertension; Z88.0 Allergy status to penicillin; Z88.1 Allergy status to other antibiotic agents; Z88.5 Allergy status to narcotic agent; Z88.8 Allergy status to other drugs, medicaments and biological substances
CPT/HCPCS: 99283; A9270

== ENCOUNTER 2024-06-27 07:35 | Emergency (ER) | payer MEDICARE, BC ==
[2024-06-27] MEDS: Acetaminophen 325 MG Tab PO ONE (08:14)
[2024-06-27 10:00] VITALS: BP 114/55; PULSE 67
== END 2024-06-27 09:59 | disposition home or self-care (01) ==
LOC: MW.ED 07:35
DX: S00.03XA Contusion of scalp, initial encounter (principal); S00.81XA Abrasion of other part of head, initial encounter; S09.90XA Unspecified injury of head, initial encounter; I10 Essential (primary) hypertension; Z79.899 Other long term (current) drug therapy; Z79.82 Long term (current) use of aspirin; Z88.0 Allergy status to penicillin; Z88.1 Allergy status to other antibiotic agents; Z88.5 Allergy status to narcotic agent; Z88.8 Allergy status to other drugs, medicaments and biological substances; Z75.8 Other problems related to medical facilities and other health care; W01.198A Fall on same level from slipping, tripping and stumbling with subsequent striking against other object, initial encounter; Y93.01 Activity, walking, marching and hiking
CPT/HCPCS: 70450; 70486; 72125; 99283; A9270

== ENCOUNTER 2024-08-08 10:52 | Emergency (ER) | payer MEDICARE, BC ==
[2024-08-08 12:16] LABS: BASOPHILS ABSOLUTE AUTO 0.05 K/uL (0.00-0.20); BASOPHILS PERCENT AUTO 0.7 % (0.0-1.0); EOSINOPHILS PERCENT AUTO 8.6 % (0.0-6.0); HEMATOCRIT 30.8 % (37.0-47.0); HEMOGLOBIN 10.3 g/dL (12.0-16.0); IMMATURE GRAN ABSOLUTE AUTO 0.01 K/uL (0.00-0.05); IMMATURE GRAN PERCENT AUTO 0.1 % (0.0-0.4); LYMPHOCYTES ABSOLUTE AUTO 1.36 K/uL (1.00-4.80); LYMPHOCYTES PERCENT AUTO 19.6 % (24.0-44.0); MEAN CORPUSCULAR HEMOGLOBIN 30.7 pg (28.0-32.0); MEAN CORPUSCULAR HGB CONC 33.4 g/dL (32.0-36.0); MEAN CORPUSCULAR VOLUME 91.9 fL (83.0-99.0); MEAN PLATELET VOLUME 9.1 fL (9.4-12.3); MONOCYTES ABSOLUTE AUTO 0.68 K/uL (0.00-0.80); MONOCYTES PERCENT AUTO 9.8 % (0.0-8.0); NEUTROPHILS ABSOLUTE AUTO 4.25 K/uL (1.80-7.70); NEUTROPHILS PERCENT AUTO 61.2 % (41.0-71.0); PLATELET COUNT,PLT 228 K/uL (150-400); RED BLOOD CELL COUNT 3.35 M/uL (4.10-5.30); WHITE BLOOD CELL COUNT,WBC 6.95 K/uL (3.9-11.3)
[2024-08-08 12:40] LABS: A/G RATIO 1.4 (0.9-1.6); ALANINE AMINOTRANSFERASE,ALT 24 IU/L (14-63); ALBUMIN 3.8 g/dL (3.4-5.0); ALKALINE PHOSPHATASE 93 U/L (46-116); ASPARTATE AMNIOTRANSFERASE,AST 32 IU/L (15-37); BILIRUBIN TOTAL 1.1 mg/dL (0.2-1.0); BLOOD UREA NITROGEN,BUN 41 mg/dL (7.0-18.0); CALCIUM 9.6 mg/dL (8.5-10.1); CARBON DIOXIDE,CO2 23.8 mmol/L (21.0-32.0); CHLORIDE,CL 102 mmol/L (98-107); EST CRCL DRUG DOSING (CG) 17.73 mL/min; GLUCOSE RANDOM 109 mg/dL (74-106); POTASSIUM,K 4.7 mmol/L (3.5-5.1); PROTEIN TOTAL,TP 6.6 g/dL (6.4-8.2); SODIUM,NA 139 mmol/L (136-145)
[2024-08-08 12:44] LABS: ESTIMATED GFR 26 mL/min (>60); ETHANOL BLOOD MEDICAL < 3.0 mg/dL
[2024-08-08 14:41] LABS: APPEARANCE,URINE CLEAR; BILIRUBIN,URINE NEGATIVE (NEGATIVE); COLOR,URINE YELLOW; GLUCOSE,URINE NEGATIVE (NEGATIVE); KETONES,URINE NEGATIVE (NEGATIVE); LEUKOCYTE ESTERASE,URINE NEGATIVE (NEGATIVE); NITRITE,URINE NEGATIVE (NEGATIVE); OCCULT BLOOD,URINE NEGATIVE (NEGATIVE); PROTEIN,URINE NEGATIVE (NEGATIVE); UROBILINOGEN,URINE 0.2 EU/dL (<2.0)
[2024-08-08] MEDS: Sodium Chloride 0.9% 1,000 ML IV STA (15:24)
[2024-08-08] MEDS: Sodium Chloride 0.9% 10 ML Syringe FLUSH PRN (15:24)
[2024-08-08] MEDS: Sodium Chloride 0.9% 2.5 ML Syringe FLUSH PRN (15:25)
[2024-08-08 17:02] VITALS: BP 134/63; PULSE 76
== END 2024-08-08 16:30 ==
LOC: MW.ED 10:52
DX: M54.50 Low back pain, unspecified (principal); H53.2 Diplopia; I10 Essential (primary) hypertension; E78.00 Pure hypercholesterolemia, unspecified; Z75.8 Other problems related to medical facilities and other health care; Z88.0 Allergy status to penicillin; Z88.1 Allergy status to other antibiotic agents; Z88.8 Allergy status to other drugs, medicaments and biological substances; Z88.5 Allergy status to narcotic agent; Z79.82 Long term (current) use of aspirin; Z79.899 Other long term (current) drug therapy
CPT/HCPCS: 36415; 70450; 71045; 80053; 80307; 81003; 84484; 85025; 93005; 99285; J7030

== ENCOUNTER 2024-09-02 13:38 | Emergency (ER) | payer MEDICARE, BC ==
[2024-09-02 14:36] LABS: BASOPHILS ABSOLUTE AUTO 0.03 K/uL (0.00-0.20); BASOPHILS PERCENT AUTO 0.4 % (0.0-1.0); EOSINOPHILS ABSOLUTE AUTO 0.53 K/uL (0.00-0.45); EOSINOPHILS PERCENT AUTO 7.1 % (0.0-6.0); HEMATOCRIT 31.1 % (37.0-47.0); HEMOGLOBIN 10.2 g/dL (12.0-16.0); IMMATURE GRAN ABSOLUTE AUTO 0.01 K/uL (0.00-0.05); IMMATURE GRAN PERCENT AUTO 0.1 % (0.0-0.4); LYMPHOCYTES ABSOLUTE AUTO 1.62 K/uL (1.00-4.80); LYMPHOCYTES PERCENT AUTO 21.6 % (24.0-44.0); MEAN CORPUSCULAR HEMOGLOBIN 30.6 pg (28.0-32.0); MEAN CORPUSCULAR HGB CONC 32.8 g/dL (32.0-36.0); MEAN CORPUSCULAR VOLUME 93.4 fL (83.0-99.0); MEAN PLATELET VOLUME 9.4 fL (9.4-12.3); MONOCYTES ABSOLUTE AUTO 0.61 K/uL (0.00-0.80); MONOCYTES PERCENT AUTO 8.1 % (0.0-8.0); NEUTROPHILS ABSOLUTE AUTO 4.71 K/uL (1.80-7.70); NEUTROPHILS PERCENT AUTO 62.7 % (41.0-71.0); PLATELET COUNT,PLT 279 K/uL (150-400); RED BLOOD CELL COUNT 3.33 M/uL (4.10-5.30); WHITE BLOOD CELL COUNT,WBC 7.51 K/uL (3.9-11.3)
[2024-09-02 14:58] LABS: APPEARANCE,URINE CLEAR; BILIRUBIN,URINE NEGATIVE (NEGATIVE); COLOR,URINE YELLOW; GLUCOSE,URINE NEGATIVE (NEGATIVE); KETONES,URINE NEGATIVE (NEGATIVE); LEUKOCYTE ESTERASE,URINE NEGATIVE (NEGATIVE); NITRITE,URINE NEGATIVE (NEGATIVE); OCCULT BLOOD,URINE NEGATIVE (NEGATIVE); PROTEIN,URINE NEGATIVE (NEGATIVE); UROBILINOGEN,URINE 0.2 EU/dL (<2.0)
[2024-09-02 15:15] LABS: A/G RATIO 1.2 (0.9-1.6); ALANINE AMINOTRANSFERASE,ALT 20 IU/L (14-63); ALBUMIN 3.7 g/dL (3.4-5.0); ALKALINE PHOSPHATASE 76 U/L (46-116); ASPARTATE AMNIOTRANSFERASE,AST 25 IU/L (15-37); BILIRUBIN TOTAL 0.7 mg/dL (0.2-1.0); BLOOD UREA NITROGEN,BUN 22 mg/dL (7.0-18.0); CALCIUM 9.2 mg/dL (8.5-10.1); CARBON DIOXIDE,CO2 26.3 mmol/L (21.0-32.0); CHLORIDE,CL 102 mmol/L (98-107); CREATININE 1.1 mg/dL (0.6-1.0); GLUCOSE RANDOM 107 mg/dL (74-106); MAGNESIUM 2.3 mg/dL (1.8-2.4); POTASSIUM,K 4.6 mmol/L (3.5-5.1); PRO B-TYPE NATRIUR PEPT,BNPPRO 125 pg/mL (0-125); PROTEIN TOTAL,TP 6.8 g/dL (6.4-8.2); SODIUM,NA 138 mmol/L (136-145)
[2024-09-02 15:23] LABS: ESTIMATED GFR 53 mL/min (>60)
[2024-09-02 15:53] VITALS: BP 130/70; PULSE 76
== END 2024-09-02 15:54 | disposition home or self-care (01) ==
LOC: MW.ED 13:38
DX: S00.83XA Contusion of other part of head, initial encounter (principal); S09.90XA Unspecified injury of head, initial encounter; M54.2 Cervicalgia; R91.1 Solitary pulmonary nodule; R79.89 Other specified abnormal findings of blood chemistry; Z95.0 Presence of cardiac pacemaker; Z86.69 Personal history of other diseases of the nervous system and sense organs; I10 Essential (primary) hypertension; E78.00 Pure hypercholesterolemia, unspecified; Z79.82 Long term (current) use of aspirin; Z79.899 Other long term (current) drug therapy; Z88.0 Allergy status to penicillin; Z88.1 Allergy status to other antibiotic agents; Z88.5 Allergy status to narcotic agent; Z88.8 Allergy status to other drugs, medicaments and biological substances; W22.8XXA Striking against or struck by other objects, initial encounter
CPT/HCPCS: 36415; 70450; 70450-26; 70486; 70486-26; 71045; 71045-26; 72125; 80053; 81003; 83735; 83880; 84484; 85025; 93005; 99284

== ENCOUNTER 2024-11-23 13:23 | Emergency (ER) | payer MEDICARE, BC ==
[2024-11-23 13:38] VITALS: BP 121/63; PULSE 91
== END 2024-11-23 15:21 | disposition home or self-care (01) ==
LOC: MW.ED 13:23
DX: S90.122A Contusion of left lesser toe(s) without damage to nail, initial encounter (principal); Z75.3 Unavailability and inaccessibility of health-care facilities; I10 Essential (primary) hypertension; E78.00 Pure hypercholesterolemia, unspecified; Z79.899 Other long term (current) drug therapy; Z79.82 Long term (current) use of aspirin; Z88.0 Allergy status to penicillin; Z88.5 Allergy status to narcotic agent; Z88.8 Allergy status to other drugs, medicaments and biological substances; Z88.1 Allergy status to other antibiotic agents; X50.9XXA Other and unspecified overexertion or strenuous movements or postures, initial encounter
CPT/HCPCS: 73630-26-LT; 73630-LT; 99283